=== PATIENT | female | born 1990 | race Caucasian/White ===

== ENCOUNTER 2024-04-12 12:38 | Emergency (ER) | payer BC, OTHER | END 2024-04-12 15:05 | disposition home or self-care (01) | LOC: JD.ED 12:38 | DX: O9A.213 Injury, poisoning and certain other consequences of external causes complicating pregnancy, third trimester (principal); S80.12XA Contusion of left lower leg, initial encounter; Z79.82 Long term (current) use of aspirin; Z79.899 Other long term (current) drug therapy; W01.0XXA Fall on same level from slipping, tripping and stumbling without subsequent striking against object, initial encounter; Z3A.33 33 weeks gestation of pregnancy | CPT/HCPCS: 73590-26-LT; 73590-LT; 93971-26-LT; 93971-LT; 99284 ==

== ENCOUNTER 2024-06-01 05:30 | Inpatient (IN) | payer BC, OTHER ==
[~2024-06-01 05:30] MED LIST: Lactated Ringers 1,000 ML IV SCH; Sodium Chloride 0.9% 10 ML Syringe FLUSH PRN; Sodium Chloride 0.9% 10 ML Syringe FLUSH SCH
[2024-06-01 06:04] LABS: BASOPHILS PERCENT AUTO 0.3 % (0.0-1.0); EOSINOPHILS ABSOLUTE AUTO 0.1 K/mm3 (0.0-0.4); EOSINOPHILS PERCENT AUTO 1.1 % (0.0-6.0); HEMATOCRIT 34.2 % (37.0-47.0); IMMATURE GRAN ABSOLUTE AUTO 0.08 K/mm3 (0.00-0.05); IMMATURE GRAN PERCENT AUTO 0.7 % (0.0-0.4); LYMPHOCYTES ABSOLUTE AUTO 1.7 K/mm3 (1.0-4.8); LYMPHOCYTES PERCENT AUTO 15.3 % (24.0-44.0); MEAN CORPUSCULAR HEMOGLOBIN 33.7 pg (28.0-32.0); MEAN CORPUSCULAR HGB CONC 35.1 g/dl (32.0-36.0); MEAN CORPUSCULAR VOLUME 96.1 fl (83.0-99.0); MONOCYTES ABSOLUTE AUTO 0.6 K/mm3 (0.0-0.8); MONOCYTES PERCENT AUTO 5.3 % (0.0-8.0); NEUTROPHILS ABSOLUTE AUTO 8.4 K/mm3 (1.8-7.7); NEUTROPHILS PERCENT AUTO 77.3 % (41.0-71.0); PLATELET COUNT,PLT 128 K/mm3 (150-400); RED BLOOD CELL COUNT 3.56 M/mm3 (4.10-5.30); WHITE BLOOD CELL COUNT,WBC 10.81 K/mm3 (3.9-11.3)
[2024-06-01] MEDS: Lactated Ringers 1,000 ML IV SCH (06:10)
[2024-06-01] MEDS ORDERED: ePHEDrine 50 MG/ML SDV ONE (06:25)
[2024-06-01] MEDS ORDERED: Oxytocin/0.9 % Sodium Chloride 30 UNIT/500 ML BAG IV SCH (06:45)
[2024-06-01] MEDS ORDERED: Ondansetron 4 MG/2 ML SDV ONE (07:07)
[2024-06-01] MEDS: Metoclopramide 10 MG/2 ML SDV IVPUSH ONE (07:10)
[2024-06-01] MEDS: Citric Acid/Sodium Citrate Solution 30 ML Cup PO ONE (07:10)
[2024-06-01] MEDS ORDERED: Morphine PF 10 MG/10 ML SDV ONE (07:10)
[2024-06-01] MEDS ORDERED: Lactated Ringers 1,000 ML ONE (07:21)
[2024-06-01] MEDS ORDERED: Sodium Chloride 0.9% 100 ML ONE (07:25)
[2024-06-01] MEDS ORDERED: ceFAZolin 2 GM Vial IVPUSH ONE (07:30)
[2024-06-01] MEDS ORDERED: ceFAZolin 2 GM Vial ONE (07:47)
[2024-06-01] MEDS ORDERED: Phenylephrine 1% 10 MG/ML SDV ONE (07:47)
[2024-06-01] MEDS ORDERED: Methylergonovine 0.2 MG/1 ML Amp ONE (07:48)
[2024-06-01] MEDS ORDERED: Oxytocin 10 Units/1 ML SDV ONE (08:08)
[2024-06-01] MEDS ORDERED: Misoprostol 200 MCG Tab ONE (08:08)
[2024-06-01] MEDS ORDERED: fentaNYL 100 MCG/2 ML SDV IVPUSH PRN (08:28)
[2024-06-01] MEDS ORDERED: diphenhydrAMINE 50 MG/ML SDV IVPUSH PRN ×2 (08:28→09:05)
[2024-06-01] MEDS ORDERED: Meperidine 50 MG/ML Vial IVPUSH PRN (08:28)
[2024-06-01 08:40] LABS: HEMATOCRIT 33.7 % (37.0-47.0); HEMOGLOBIN 11.5 gm/dl (12.0-16.0); MEAN CORPUSCULAR HEMOGLOBIN 33.8 pg (28.0-32.0); MEAN CORPUSCULAR HGB CONC 34.1 g/dl (32.0-36.0); MEAN CORPUSCULAR VOLUME 99.1 fl (83.0-99.0); MEAN PLATELET VOLUME 10.1 fl (9.4-12.3); PLATELET COUNT,PLT 124 K/mm3 (150-400); WHITE BLOOD CELL COUNT,WBC 10.36 K/mm3 (3.9-11.3)
[2024-06-01] MEDS ORDERED: Sodium Chloride 0.9% 10 ML Syringe FLUSH SCH (09:00)
[2024-06-01] MEDS ORDERED: Naloxone 0.4 MG/ML SDV IVPUSH PRN (09:05)
[2024-06-01] MEDS ORDERED: Acetaminophen 325 MG Tab PO PRN (09:05)
[2024-06-01] MEDS ORDERED: oxyCODONE 5 MG Tab PO PRN (09:05)
[2024-06-01] MEDS ORDERED: ePHEDrine 50 MG/ML SDV IVPUSH PRN (09:05)
[2024-06-01] MEDS ORDERED: Sodium Chloride 0.9% 10 ML Syringe FLUSH PRN (09:05)
[2024-06-01] MEDS ORDERED: Ondansetron 4 MG/2 ML SDV IV PRN (09:05)
[2024-06-01 09:06] LABS: INR 0.96; PROTHROMBIN TIME 10.2 SECONDS (9.7-12.0)
[2024-06-01 09:08] LABS: PTT,PARTIAL THROMBOPLSTIN TIME 26.2 SECONDS (21.7-31.4)
[2024-06-01] MEDS: Dextrose 5%-Lactated Ringers 1,000 ML IV SCH (11:46)
[2024-06-01] MEDS: Ondansetron 4 MG/2 ML SDV IVPUSH PRN (12:35)
[2024-06-01] MEDS: Ibuprofen 600 MG Tab PO SCH (13:40)
[2024-06-01] MEDS: Sertraline 50 MG Tab PO SCH (14:21)
[2024-06-01] MEDS: Ketorolac 30 MG/ML SDV IVPUSH SCH (14:39)
[2024-06-01] MEDS: Lactated Ringers 1,000 ML IV ONE (18:45)
[2024-06-01] MEDS: Docusate Sodium 100 MG Cap PO PRN (20:04)
[2024-06-02 05:40] LABS: HEMATOCRIT 30.3 % (37.0-47.0); HEMOGLOBIN 10.2 gm/dl (12.0-16.0); MEAN CORPUSCULAR HEMOGLOBIN 33.7 pg (28.0-32.0); MEAN CORPUSCULAR HGB CONC 33.7 g/dl (32.0-36.0); MEAN PLATELET VOLUME 10.8 fl (9.4-12.3); PLATELET COUNT,PLT 120 K/mm3 (150-400); RED BLOOD CELL COUNT 3.03 M/mm3 (4.10-5.30); WHITE BLOOD CELL COUNT,WBC 10.76 K/mm3 (3.9-11.3)
[2024-06-02] MEDS: Ibuprofen 600 MG Tab PO SCH ×2 (10:41→18:27)
== END 2024-06-03 10:30 | disposition home or self-care (01) | DRG 540 ==
LOC: JD.OB 05:30
PROVIDERS: ADMIT Obstetrics & Gynecology; ATTEND Obstetrics & Gynecology
PROC: 10D00Z1 Extraction of Products of Conception, Low, Open Approach (ICD-10-PCS; principal; 2024-06-01 07:30)
DX: O34.211 Maternal care for low transverse scar from previous cesarean delivery (principal); Z3A.39 39 weeks gestation of pregnancy; Z37.0 Single live birth; O72.1 Other immediate postpartum hemorrhage
CPT/HCPCS: 36415; 59025; 85025; 85027; 85384; 85610; 85730; 86592; 86850; 86900; 86901; 94762; A9270-GY; J0690; J1885; J2210; J2274; J2371; J2405; J2590; J2765; J3490; J7120; J7121; J7999